=== PATIENT | male | born 1985 | race Caucasian/White ===

== ENCOUNTER 2021-08-05 01:34 | Emergency (ER) | payer OTHER ==
[~2021-08-05] VITALS: Ht 175.3 cm; Wt 81.6 kg
[2021-08-05 06:12] VITALS: BP 133/100
[2021-08-05] MEDS ORDERED: PRED15SO26 GT (09:02)
== END 2021-08-05 06:29 | disposition left against medical advice (07) ==
LOC: ER 01:34
DX: S40.862A Insect bite (nonvenomous) of left upper arm, initial encounter (principal); Z77.098 Contact with and (suspected) exposure to other hazardous, chiefly nonmedicinal, chemicals; W57.XXXA Bitten or stung by nonvenomous insect and other nonvenomous arthropods, initial encounter; Y93.89 Activity, other specified; Y92.89 Other specified places as the place of occurrence of the external cause; Y99.8 Other external cause status